=== PATIENT | male | born 1960 | race Caucasian/White ===

== ENCOUNTER 2018-02-06 08:30 | Inpatient (IN) | payer OTHER ==
[2018-02-06] MEDS ORDERED: THROMBIN 5000 UNIT VIAL ×2 (11:31→13:18)
[2018-02-06] MEDS ORDERED: MIDAZOLAM 1 MG/ML 2 ML INJ (11:48)
[2018-02-06] MEDS: D5W-0.45 NACL + KCL 20 MEQ 1,000 ML IV ×2 (11:49→20:45)
[2018-02-06] MEDS ORDERED: AL HYDROX/MG HYDROX/SIMETH 30 ML CUP PO (12:00)
[2018-02-06] MEDS ORDERED: ZOLPIDEM 5 MG TAB PO (12:00)
[2018-02-06] MEDS ORDERED: NALOXONE (0.4 MG/ML) INJ IV (12:00)
[2018-02-06] MEDS ORDERED: HYDROmorphONE 0.5 MG/0.5 ML SYG IV (12:00)
[2018-02-06] MEDS ORDERED: BISACODYL 10 MG SUPP PR (12:00)
[2018-02-06] MEDS ORDERED: DIPHENHYDRAMINE 50 MG INJ IV ×2 (12:00→16:00)
[2018-02-06] MEDS ORDERED: HYDROCODONE/APAP (10/325) TAB PO (12:00)
[2018-02-06] MEDS: CEFAZOLIN 1 GM/50 ML (PMX) 50 ML IVPB ×2 (12:05→20:32)
[2018-02-06] MEDS ORDERED: DEXAMETHASONE 4 MG/ML 1 ML INJ (12:33)
[2018-02-06] MEDS: BUPIVACAINE 0.25%/EPI (MDV) 50 ML VIAL INJ (12:42)
[2018-02-06] MEDS: POLYMYXIN/BACITRACIN 1L IRRIG (12:42)
[2018-02-06] MEDS: SURGIFOAM POWDER 1 GM KIT (12:42)
[2018-02-06] MEDS ORDERED: hydrALAzine 20 MG INJ (13:05)
[2018-02-06] MEDS ORDERED: GELATIN SIZE 100 SPONGE (13:17)
[2018-02-06] MEDS: GELATIN SIZE 100 SPONGE TOP (13:28)
[2018-02-06] MEDS ORDERED: morphine 10 MG INJ (15:29)
[2018-02-06] MEDS ORDERED: ONDANSETRON 4 MG INJ (15:30)
[2018-02-06] MEDS ORDERED: PROPOFOL 20 ML (15:44)
[2018-02-06] MEDS ORDERED: ROCURONIUM 50 MG INJ (15:44)
[2018-02-06] MEDS ORDERED: NEOSTIGMINE 3 MG/3 ML SYRINGE (15:44)
[2018-02-06] MEDS ORDERED: GLYCOPYRROLATE 0.4 MG INJ (15:44)
[2018-02-06] MEDS ORDERED: CEFAZOLIN 1 GM INJ (15:44)
[2018-02-06] MEDS ORDERED: LIDOCAINE 2% (SDV) 5 ML INJ (15:44)
[2018-02-06] MEDS ORDERED: FENTAnyl 50 MCG/ML VIAL IV (16:00)
[2018-02-06] MEDS ORDERED: MEPERIDINE 25 MG INJ IV (16:00)
[2018-02-06] MEDS ORDERED: HYDROmorphONE 1 MG/5 ML IV SYRINGE IV ×2 (16:00)
[2018-02-06] MEDS ORDERED: ONDANSETRON 4 MG INJ IV (16:00)
[2018-02-06] MEDS: HYDROmorphONE 0.2 MG/ML PCA IV (16:11)
[2018-02-06] MEDS: DOCUSATE SODIUM 100 MG CAP PO (20:32)
[2018-02-06] MEDS: ONDANSETRON 4 MG INJ IV (20:46)
[2018-02-06 21:52] LABS: Arterial Blood Gas Oxygen Sat 96.1 mmHG (95.0-98.0); Arterial COHb 0.2 % (0.0-3.0); Arterial Fraction of Oxyhgb 95.6 % (93.0-99.0); Arterial HCO3 22.8 mmol/L (22.0-26.0); Arterial MetHb 0.3 % (0.0-1.5); Arterial Total Hemglobin 14.9 g/dl (12.0-18.0); Arterial pCO2 39.2 mmhg (35-45); MODE NASAL CANNULA; Site Right Brachial
[2018-02-07] MEDS: CEFAZOLIN 1 GM/50 ML (PMX) 50 ML IVPB ×3 (04:12→12:29)
[2018-02-07 05:12] LABS: ADD MAN DIFF? NO
[2018-02-07 05:19] LABS: WHITE BLOOD COUNT 13.8 10^3/ul (4.8-10.8)
[2018-02-07 05:19] LABS: ABNORMAL IP MESSAGE 1; BASOPHILS % 0.1 % (0.0-2.0); HEMATOCRIT 39.4 % (42.0-52.0); HEMOGLOBIN 13.4 g/dl (14.0-18.0); LYMPHOCYTES # 0.6 10^3/ul (0.8-2.9); LYMPHOCYTES % 4.2 % (15.0-51.0); MEAN CORPUSCULAR HEMOGLOBIN 31.1 pg (29.0-33.0); MEAN CORPUSCULAR VOLUME 91.4 fl (82.0-101.0); MEAN PLATELET VOLUME 9.8 fl (7.4-10.4); MONOCYTE # 0.8 10^3/ul (0.3-0.9); MONOCYTES % 5.7 % (0.0-11.0); NEUTROPHIL # 12.3 10^3/ul (1.6-7.5); NEUTROPHILS % 89.5 % (39.0-77.0); PLATELET COUNT 253 10^3/UL (140-415); POSITIVE DIFF @See below; RED BLOOD COUNT 4.31 10^6/ul (4.70-6.10); RED CELL DISTRIBUTION WIDTH 12.1 % (11.5-14.5)
[2018-02-07 05:49] LABS: ANION GAP 15 (8-16); BLOOD UREA NITROGEN 13 mg/dl (7-20); CALCIUM 8.8 mg/dl (8.4-10.2); CARBON DIOXIDE 25 mmol/L (21-31); CHLORIDE 104 mmol/L (97-110); CREATININE 0.76 mg/dl (0.61-1.24); GLUCOSE 155 mg/dl (70-220); POTASSIUM 4.2 mmol/L (3.5-5.1); SODIUM 140 mmol/L (135-144)
[2018-02-07] MEDS: ONDANSETRON 4 MG INJ IV (06:08)
[2018-02-07] MEDS: ACETAMINOPHEN 325 MG TAB PO (06:09)
[2018-02-07] MEDS: CEPASTAT LOZENGE MT ×2 (06:12→13:30)
[2018-02-07] MEDS: HYDROCODONE/APAP (10/325) TAB PO ×2 (07:29→11:50)
[2018-02-07] MEDS: D5W-0.45 NACL + KCL 20 MEQ 1,000 ML IV (07:29)
[2018-02-07] MEDS: DOCUSATE SODIUM 100 MG CAP PO (08:19)
[2018-02-07] MEDS: CARISOPRODOL 350 MG TAB PO (10:40)
== END 2018-02-07 14:54 | disposition home or self-care (01) | DRG 473 ==
LOC: REC 08:30 → MS1 17:14
PROC: 0RG20A0 Fusion of 2 or more Cervical Vertebral Joints with Interbody Fusion Device, Anterior Approach, Anterior Column, Open Approach (ICD-10-PCS; principal; 2018-02-06 12:00)
PROC: 0RT30ZZ Resection of Cervical Vertebral Disc, Open Approach (ICD-10-PCS; 2018-02-06 12:00)
PROC: 4A11X4G Monitoring of Peripheral Nervous Electrical Activity, Intraoperative, External Approach (ICD-10-PCS; 2018-02-06 12:00)
DX: M50.11 Cervical disc disorder with radiculopathy, high cervical region (principal); M48.02 Spinal stenosis, cervical region
CPT/HCPCS: 36600; 72052; 80048; 82803; 83735; 85025; 86999; 87086; 93005; 97116; 97162; 97530